=== PATIENT | male | born 1945 | race Caucasian/White ===

== ENCOUNTER 2020-07-05 05:00 | Observation (INO) ==
--- NOTE | 2020-06-29 09:12 | PAT Medication Instructions ---
Medication Instructions Date of Service June 29, 2020 Home Medications amlodipine 10 mg PO QAM aspirin 81 mg PO QAM atenolol 50 mg PO BID atorvastatin 10 mg PO HS cholecalciferol (vitamin D3) [Vitamin D3] 25 mcg PO QAM cyanocobalamin (vitamin B-12) [Vitamin B-12] 500 mcg PO BID hydrochlorothiazide 25 mg PO QAM omega 3-hnw-kuk-fish oil [Fish Oil] 2 cap PO QAM omeprazole 20 mg PO BID STOP taking 2 weeks before surgery (or as soon as possible if surgery is within 2 weeks) omega 0-nxd-suh-fish oil [Fish Oil] 2 cap PO QAM DO NOT take the morning of surgery cholecalciferol (vitamin D3) [Vitamin D3] 25 mcg PO QAM cyanocobalamin (vitamin B-12) [Vitamin B-12] 500 mcg PO BID hydrochlorothiazide 25 mg PO QAM Take morning of surgery With a small sip of water, OTHERWISE NOTHING TO EAT OR DRINK AFTER MIDNIGHT: amlodipine 10 mg PO QAM aspirin 81 mg PO QAM atenolol 50 mg PO BID omeprazole 20 mg PO BID Take evening before surgery atenolol 50 mg PO BID atorvastatin 10 mg PO HS cyanocobalamin (vitamin B-12) [Vitamin B-12] 500 mcg PO BID omeprazole 20 mg PO BID Other Notes If you have any questions please call us at [phone] or [phone] or [phone] or [phone]
--- NOTE | 2020-06-30 11:10 | Anesthesiology Consultation ---
Date of Service June 30, 2020 Assessment & Plan (1) Encounter for pre-operative examination: Chart Review Chart Review: Acceptable Risk for Surgery (pending surgeon ordered PCP clearance and preop Covid testing ) and Patient seen in Pre Admission Testing Awaiting surgeon ordered PCP clearancer scheduled 07/01/20 at 1300pm -With previous surgery- patient did have syncope DOS in the past. Did have cardiac work up (negative). [place] to be secondary to dehydration- did recommend patient stay hydrated and drink extra water day prior to surgery. Pt understands no food or drink after midnight prior to surgery. Per PAT appt on 06/30/20, patient resides in [facility]. Denies recent travel. Wears PPE. Preop Covid done at [facility] 06/30/20= results pending. Educated on importance of self quarantining, social distancing and wearing mask in public both for the patient and household contacts. Teaching & Discussion Pre-Anesthesia Teaching/Discussion Notes: Instructed NPO after midnight before surgery,except medications with 15 cc of water. Medication instructions prov ided according to the PAT guidelines. History Surgery Operation Date: 07/05/20 11:25 Proposed Procedures p Left Total Knee Arthroplasty - Amaury Henderson DO Height/Weight Height: 5 ft 8 in Weight: 90.6 kg Allergies Allergy/AdvReac Type Severity Reaction Status Date / Time No Known Allergies Allergy Verified 06/23/20 08:35 Medications Home Medications Medication Instructions Recorded Confirmed Last Taken amlodipine 10 mg PO QAM 06/23/20 06/23/20 Unknown aspirin 81 mg PO QAM 06/23/20 06/23/20 Unknown atenolol 50 mg PO BID 06/23/20 06/23/20 Unknown atorvastatin 10 mg PO HS 06/23/20 06/23/20 Unknown cholecalciferol (vitamin D3) 25 mcg PO QAM 06/23/20 06/23/20 Unknown [Vitamin D3] cyanocobalamin (vitamin B-12) 500 mcg PO BID 06/23/20 06/23/20 Unknown [Vitamin B-12] hydrochlorothiazide 25 mg PO QAM 06/23/20 06/23/20 Unknown omega 6-cst-gzu-fish oil [Fish Oil] 2 cap PO QAM 06/23/20 06/23/20 Unknown omeprazole 20 mg PO BID 06/23/20 06/23/20 Unknown Past Medical History Medical History GERD (gastroesophageal reflux disease) Well controlled and stable Hyperlipidemia Hypertension Osteoarthritis Exercise / Class Metabolic Activity II 4-5 Yardwork/Stairs/Walk up hill (one flight of stairs- no chest pain or SOB) Past Surgical History Surgical History History of left inguinal hernia repair Hx laparoscopic cholecystectomy Hx of appendectomy Hx of colonoscopy Hx of hemorrhoidectomy Hx of tonsillectomy Past Anesthesia History No Hx of Anesthesia Complications and No Family Hx of Anesthesia Complications History of PONV No Hx of PONV and No Hx of Motion Sickness Social History Smoking Status: Never smoker Do You Dip or Chew Tobacco: No Hx Alcohol Use: No Hx Substance Use: No substance use type: does not use Review of Systems Patient denies chest pain, shortness of breath, dyspnea on exertion, cough, wheezing, palpitations. No hx of seizures, stroke, MA, apnea/snoring. No hx of blood clots or blood transfusions Physical Exam Vital Signs VITALS BP 148/69 P 70 TEMP 98.2 SP02 97% RESP 16 Constitutional no acute distress ENMT Mouth: no TMJ clicking Thyromental Distance: > or= 3.5 Finger Breadths (4.0) Mallampati Class: III Missing molars Neck + limited neck extension (mild ) Respiratory normal respiratory effort; no respiratory distress Auscultation: lungs clear to auscultation bilaterally; no wheezes Cardiovascular Rate/Rhythm: regular rate and regular rhythm Heart Sounds: no murmur Vessels: no carotid bruit Musculoskeletal Spine: no pain with cervical ROM Neurologic moves all extremities Psychiatric Orientation: alert Testing Laboratory Results 06/30/20 11:31 06/30/20 11:31 PT 10.2 Seconds (9.0-12.0) 06/30/20 11:31 INR 1.0 (0.9-1.1) 06/30/20 11:31 APTT 26.9 Seconds (21.0-31.0) 06/30/20 11:31 Hemoglobin A1c 6.1 % (4.5-5.6) H 06/30/20 11:31 Urine Color Yellow 06/30/20 Unknown Urine Appearance Clear (Clear) 06/30/20 Unknown Urine pH 5.0 (4.5-7.5) 06/30/20 Unknown Ur Specific [place] 1.016 (1.000-1.030) 06/30/20 Unknown Urine Protein Negative (Negative) 06/30/20 Unknown Urine Glucose (UA) Negative (Negative) 06/30/20 Unknown Urine Ketones Negative (Negative) 06/30/20 Unknown Urine Nitrite Negative (Negative) 06/30/20 Unknown Ur Leukocyte Esterase Negative (Negative) 06/30/20 Unknown Blood Type A Positive 06/30/20 11:31 Antibody Screen NEGATIVE 06/30/20 11:31 Electrocardiogram Date: 06/30/20 SR with occ PVCs at 63 bpm. Chest X-Ray Date: 06/30/20 Findings: + NAD
--- NOTE | 2020-06-30 13:16 | XRay Report ---
XR chest Pre-admission PA/Lat CLINICAL HISTORY: Preoperative evaluation. COMPARISON STUDY: No previous studies for comparison. FINDINGS: Lung volumes are normal. Lungs are clear. There is no pneumothorax or pleural effusion. Car diac size is normal. Mediastinal contours are normal. There is no evidence for pulmonary edema. Symme tric small nodular densities projecting over each lower lung represent nipple shadows. Upper abdomina l surgical clips are incidentally noted. IMPRESSION: No acute cardiopulmonary findings. ACT 112: Negative or not required by law. Electronically signed by: Phan Morillo M.D. 06/30/2020 12:40 PM
[2020-06-30 13:20] LABS: Basophils # (auto) 0.05 K/uL (0-0.2); Basophils % (auto) 0.5 %; Eosinophils # (auto) 0.16 K/uL (0-0.5); Eosinophils % (auto) 1.6 %; Hematocrit (blood only) 46.7 % (42-52); Hemoglobin 15.4 g/dL (14.0-18.0); Immature Granulocytes # (auto) 0.04 K/uL (0.00-0.02); Immature Granulocytes % (auto) 0.4 %; Lymphocytes # (auto) 2.32 K/uL (1.2-3.4); Lymphocytes % (auto) 22.5 %; Mean Corpuscular Hemoglobin 28.9 pg (25-34); Mean Corpuscular Volume 87.8 fL (80-100); Mean Platelet Volume 11.2 fL (7.4-10.4); Monocytes # (auto) 1.09 K/uL (0.11-0.59); Monocytes % (auto) 10.6 %; Neutrophils # (auto) 6.66 K/uL (1.4-6.5); Neutrophils % (auto) 64.4 %; Platelet Count 299 K/uL (130-400); RDW Coefficient of Variation 14.9 % (11.5-14.5); RDW Standard Deviation 47.9 fL (36.4-46.3); Red Blood Count 5.32 M/uL (4.7-6.1); White Blood Count 10.32 K/uL (4.8-10.8)
[2020-06-30 13:21] LABS: Appearance Urine Clear (Clear); Bilirubin Urine Negative (Negative); Blood Urine Negative (Negative); Color Urine Yellow; Glucose Urine UA Negative (Negative); Ketones Urine Negative (Negative); Leukocyte Esterase Urine Negative (Negative); Nitrite Urine Negative (Negative); Protein Urine Negative (Negative); Specific Gravity Urine 1.016 (1.000-1.030); Urobilinogen Urine Negative (Negative)
[2020-06-30 13:31] LABS: Partial Thromboplastin Time 26.9 Seconds (21.0-31.0); Prothrombin Time 10.2 Seconds (9.0-12.0)
[2020-06-30 13:39] LABS: Albumin Level 3.8 gm/dl (3.4-5.0); BUN Creatinine Ratio 21.8 (10-20); Calcium 9.4 mg/dl (8.5-10.1); Creatinine Clr Calc Pharmacy 82.7 ml/min; Est GFR (African American) 99.2; Est GFR (Non-African American) 85.6; Potassium 3.7 mmol/L (3.5-5.1)
[2020-06-30 14:08] LABS: Estimated Average Glucose 128 mg/dl; Hemoglobin A1C 6.1 % (4.5-5.6)
--- NOTE | 2020-07-01 06:48 | Electrocardiogram Report ---
Test Reason : Blood Pressure : / mmHG Vent. Rate : 063 BPM Atrial Rate : 063 BPM P-R Int : 136 ms QRS Dur : 100 ms QT Int : 412 ms P-R-T Axes : 004 052 064 degrees QTc Int : 421 ms Sinus rhythm with occasional Premature ventricular complexes Otherwise normal ECG No previous ECGs available Confirmed by Ilia Churchill ([id number]) on 07/01/2020 6:47:35 AM Referred By: Amaury Henderson Confirmed By:Ilia Churchill
--- NOTE | 2020-07-02 10:07 | History & Physical Report ---
Date of Service July 05, 2020 Assessment & Plan (1) Degenerative joint disease of left knee: I have indicated the patient for left total knee replacement. The risks, benefits and complications of surgery were explained to the patient which include but not limited to infection, acute blood loss, DVT/PE, injury to nerves, vessels, bone, soft tissue, arthrofibrosis, chronic pain, failure of the prosthesis, knee dislocation, leg length discrepancy, need for additional surgery, cardiac and pulmonary events and . The patient wished to proceed with surgery and informed consent was obtained at this time. We will plan for ASA BID post-operatively for DVT prophylaxis. Upon discharge the patient will be discharged home with home health services. Appropriate clearances by PCP sherry e obtained. History of Present Illness Chief Complaint: Left knee pain/djd Primary Care Provider: PILO Nelson The patient is a 74 year old male who presents with complaints of severe left knee pain and DJD. The patient has failed outpatient conservative treatments to this point which included NSAIDs, IA corticosteroid injection, home e xercise/walking program. The patient's pain and limited function have progressed to the point where they severely hinder their activities of daily living and they no longer tolerate exercise programs. They are requesting to proceed with total knee replacement surgery. Allergies Allergy/AdvReac Type Severity Reaction Status Date / Time No Known Allergies Allergy Verified 07/05/20 05:29 Home Medications Home Medications Medication Instructions Recorded Confirmed Type amlodipine 10 mg PO QAM 06/23/20 07/05/20 History aspirin 81 mg PO QAM 06/23/20 07/05/20 History atenolol 50 mg PO BID 06/23/20 07/05/20 History atorvastatin 10 mg PO HS 06/23/20 07/05/20 History cholecalciferol (vitamin D3) 25 mcg PO QAM 06/23/20 07/05/20 History [Vitamin D3] cyanocobalamin (vitamin B-12) 500 mcg PO BID 06/23/20 07/05/20 History [Vitamin B-12] hydrochlorothiazide 25 mg PO QAM 06/23/20 07/05/20 History omega 3-fol-ywu-fish oil [Fish Oil] 2 cap PO QAM 06/23/20 07/05/20 History omeprazole 20 mg PO BID 06/23/20 07/05/20 History Past Med/Surg History Medical History GERD (gastroesophageal reflux disease) Well controlled and stable Hyperlipidemia Hypertension Osteoarthritis Surgical History History of left inguinal hernia repair Hx laparoscopic cholecystectomy Hx of appendectomy Hx of colonoscopy Hx of hemorrhoidectomy Hx of tonsillectomy Social History Smoking Status: Never smoker Second Hand Exposure: No; Do You Dip or Chew Tobacco: No; Tobacco Cessation Education Requested by Patient: No Hx Alcohol Use: No Hx Substance Use: No Preferred Language: Niuean Communication Ability: Effective Melter Clerk Required: No Beliefs That Will Affect Care: None Current Living Situation: Spouse Other Information That Helps Us Care for You: No Feels Safe at Home: Yes Safety Concerns: Feels Safe At This Time Review of Systems Review of Systems: All systems reviewed & are unremarkable except as noted in HPI & below Constitutional: as per Subjective / HPI Physical Exam Physical Exam: LLE NVSI +EHL/FHL/TA/GS SILT grossly, +2 DP pulse, compartments soft NT, limited painful ROM of the knee, 5-110 degrees of flexion, + crepitus. Constitutional: WD/WN, vitals as above Eyes: PERRL, conjunctivae normal, anicteric sclerae ENMT: external ear and nose normal, oropharynx normal Neck: trachea midline, no thyromegaly Respiratory: normal respiratory effort, lungs clear to auscultation Cardiovascular: RRR, no murmur, no edema Gastrointestinal (Abdomen): normal bowel sounds, soft, nontender, no hepatosplenomegaly Musculoskeletal: no cyanosis or clubbing, extremities motor strength 5/5 Skin: no rashes, warm and dry Neurologic: patellar DTR's 2+ bilat, sensation intact Psychiatric: A+Ox3, euthymic affect Lymphatic: no cervical or axillary lymphadenopathy Results & Data Results & Data ([facility]) Diagnostic Findings Multiple views of the knee demonstrates severe tricompartmental DJD with complete loss of the medial joint space. +osteophytes, +sclerosis. Pre Admission Testing Addendum Laboratory Results 06/30/20 11:31 06/30/20 11:31 PT 10.2 Seconds (9.0-12.0) 06/30/20 11:31 INR 1.0 (0.9-1.1) 06/30/20 11:31 APTT 26.9 Seconds (21.0-31.0) 06/30/20 11:31 Hemoglobin A1c 6.1 % (4.5-5.6) H 06/30/20 11:31 Urine Color Yellow 06/30/20 Unknown Urine Appearance Clear (Clear) 06/30/20 Unknown Urine pH 5.0 (4.5-7.5) 06/30/20 Unknown Ur Specific [place] 1.016 (1.000-1.030) 06/30/20 Unknown Urine Protein Negative (Negative) 06/30/20 Unknown Urine Glucose (UA) Negative (Negative) 06/30/20 Unknown Urine Ketones Negative (Negative) 06/30/20 Unknown Urine Nitrite Negative (Negative) 06/30/20 Unknown Ur Leukocyte Esterase Negative (Negative) 06/30/20 Unknown Blood Type A Positive 06/30/20 11:31 Antibody Screen NEGATIVE 06/30/20 11:31
[2020-07-05] MEDS ORDERED: ROPIVACAINE 0.5% HCL/PF 150 MG, BUPIVACAINE 0.5% MPF 30 ML, EPINEPHrine 30MG/30ML (OR U... INSTIL SCH (06:00)
[2020-07-05] MEDS ORDERED: FAMOTIDINE 20 MG TAB PO SCH (06:00)
[2020-07-05] MEDS ORDERED: TRANEXAMIC ACID 1,000 MG **IV Intra-op IV SCH (06:00)
[2020-07-05] MEDS ORDERED: GABAPENTIN 300 MG CAP PO SCH (06:00)
[2020-07-05] MEDS ORDERED: METOCLOPRAMIDE HCL 10 MG TABLET PO SCH (06:00)
[2020-07-05] MEDS ORDERED: CeleBREX 200 MG CAP PO SCH (06:00)
[2020-07-05] MEDS ORDERED: CEFAZOLIN 2000MG 2,000 MG/15 ML SYR IV SCH (06:00)
[2020-07-05] MEDS ORDERED: TRANEXAMIC ACID 1,000 MG **IV Pre-op IV SCH (06:00)
[2020-07-05] MEDS ORDERED: LR 500ML BOLUS, THEN 15ML/HR IV SCH (06:00)
[2020-07-05] MEDS ORDERED: dexAMETHasone 4 MG TAB PO SCH (06:00)
[2020-07-05] MEDS ORDERED: ACETAMINOPHEN 500 MG TAB PO SCH (06:00)
[2020-07-05] MEDS ORDERED: BUPIVACAINE 0.25% 30 ML VIAL ONE (06:27)
[2020-07-05] MEDS ORDERED: BUPIVACAINE 0.5 % 5 MG/1 ML PF 10ML VIAL ONE (06:27)
[2020-07-05] MEDS ORDERED: MIDAZOLAM HCL 1 MG/ML 2ML VIAL ONE ×2 (06:39→06:40)
[2020-07-05] MEDS ORDERED: fentaNYL citrate 100 MCG/2 ML VIAL ONE (06:40)
[2020-07-05] MEDS ORDERED: ATROPINE SULFATE 0.1 MG/ML 10ML SYR IV PRN (06:51)
[2020-07-05] MEDS ORDERED: ePHEDrine sulfate 50 MG/ML AMP IV PRN (06:51)
[2020-07-05] MEDS ORDERED: fentaNYL citrate 100 MCG/2 ML VIAL IV PRN (06:51)
[2020-07-05] MEDS ORDERED: ONDANSETRON INJ 2 MG/ML 2 ML VIAL IV PRN ×2 (06:51→10:44)
--- NOTE | 2020-07-05 07:00 | History & Physical Bridge Note ---
Date of Service July 05, 2020 History & Physical Bridge Note I have examined the patient, reviewed the History & Physical and in the interval since the performance of the History & Physical I have noted the following changes of clinical significance: no changes noted
[2020-07-05] MEDS ORDERED: ORTHO JOINT ANESTHETIC ONE (07:07)
[2020-07-05] MEDS ORDERED: BACITRACIN INJ 50,000 UNIT VIAL ONE (07:07)
[2020-07-05] MEDS ORDERED: PROPOFOL IV EMULSION 10 MG/ML 20 ML VIAL IV ONE (08:02)
--- NOTE | 2020-07-05 08:58 | Post Operative Brief Note ---
Immediate Post Op Note v1 Date of Surgery July 05, 2020 Pre & Post Diagnosis Operation Date: 07/05/20 07:15 Pre-Op Diagnosis: Left Knee Osteoarthritis Post-Op Diagnosis: Left Knee Osteoarthritis I identified the patient and participated in the time-out.: Yes Procedure Operation Date: 07/05/20 07:15 Actual Procedures p Left Total Knee Arthroplasty(Left) - Amaury Henderson DO Surgeon Amaury Henderson DO Playroom Attendant Cecil Beauchamp Estimated Blood Loss 65 Findings Consistent with Post-Op Diagnosis Specimens proximal tibia and distal femur bone fragments Anesthesia Type Spinal MAC Complications none Disposition Disposition: Recovery Room Overlapping Procedure I was present for: the critical portions of procedure. I was immediately available: during the entire case. Back up surgeon: was not required during procedure.
--- NOTE | 2020-07-05 09:01 | Operative Report ---
Post Operative Report Pre & Post Diagnosis Operation Date: 07/05/20 07:15 Pre-Op Diagnosis: Left Knee Osteoarthritis Post-Op Diagnosis: Left Knee Osteoarthritis I identified the patient and participated in the time-out.: Yes Procedure Operation Date: 07/05/20 07:15 Actual Procedures p Left Total Knee Arthroplasty(Left) - Amaury Henderson DO Surgeon Amaury Henderson DO Supervisor Display Fabrication Cecil Cali Estimated Blood Loss 65 Findings Consistent with Post-Op Diagnosis Specimens Proximal tibia and distal femur bone fragments Anesthesia Type Spinal MAC Complications none Disposition Disposition: Recovery Room Indications The patient is a 74-year-old male presents with long history of severe left knee tricompartmental DJD and failed outpatient conservative treatments including NSAIDs, bracing, injections and home walking/exercise program. The patient's symptoms have progressed to the point where it has been difficult to perform normal activities of daily living. I have indicated the patient for a left total knee arthroplasty, the risks and benefits and complications of the procedure include but are not limited to infection bleeding damage to bone, nerves, vessels, surrounding soft tissue, blood clots, loss of function, leg length discrepancy, dislocation, failure of the components, need for additional surgery and . The patient wished to proceed with surgery at this time and informed consent was obtained. Appropriate clearances were obtained. Description of Procedure COMPONENTS USED: Ralf persona knee system: Femur size 7, Tibia size E, Tibial articulating surface 11 PS, Patella 32 mm Following induction of spinal anesthesia, a tourniquet was applied to the proximal aspect of the thigh and the patient's left leg was prepped and draped in the usual sterile manner. A timeout was performed, patient identified and site jose f confirmed. Appropriate pre-operative IV antibiotics were given. The limb was exsanguinated with an Esmarch bandage and tourniquet was inflated to 300 mmHg. A longitudinal midline incision was made over the anterior knee. Subcutaneous tissue was sharply dissected down to fascia. Electrocautery was used for hemostasis. Next a parapatellar arthrotomy was performed. Patella was everted and the knee was flexed. A Donohue retractor was used to expose the synovium above on the anterior aspect of the femur and removed down to bone. Next, the anterior fat pad was removed to aid in visualization. The medial face of the tibia was cleared of soft tissue first with a Bovie and a plaza elevator. This tissue was retracted posteriorly using a blunt Hohmann. Next, the extra-medullary tibial cutting guide was placed to the anterior aspect of the tibia. The tibia resection level was set taking 2mm from the defective tibial condyle. Resection depth was once again confirmed with parul wing. The medial and lateral collateral ligament was protected with two Hohmann retractors. The tibia guide was removed and proximal tibial bone fragment removed utilizing straight osteotome, electrocautery and Sean. Next, the distal femur intramedullary canal was accessed utilizing the step drill. The intramedullary distal femur cutting guide was placed into the canal and pinned into place. The distal femur was cut on the 5 degree setting. Next the cutting guide was removed and the femur was sized. Care was taken to ensure appropriate digital imaging specialist all rotation and 3 degree holes were drilled. A size 7 4-in-1 cutting block was placed on the distal end of the femur and secured into place with two short headed screws. Two bent Hohmann retractors were placed to protect the medial and lateral collateral ligaments. The oscillating saw was used to cut anterior, posterior, anterior chamfer and posterior chamfer. The four and one cutting block was removed and bone fragments excised. Laminar paper baler was placed laterally and the ACL and PCL were removed followed by the medial meniscus and posterior medial osteophytes. Aquamantys was utilized for any posterior medial bleeders and Orthomix injected into the posterior medial capsule. A laminar paper baler was then placed in the medial compartment and the lateral meniscus and posterior osteophytes were removed. Aquamantys was utilized for any posterior lateral bleeders and Orthomix injected into the posterior lateral capsule. Next, drop sophy and spacer block were placed with the leg in flexion and extension to assess alignment and flexion/extension gaps. Next, the proximal tibia was assessed and two bent Hohmans were placed medial a nd lateral to aid in visualization. The appropriate tibia size and rotation was selected and a size E tibial plate was pinned into place with appropriate rotation. Preparation of the tibia was completed utilizing the matching tibial drill and broach. I then turned my attention back to the distal femur in a trial femoral component was impacted into place. Appropriate femoral width was assessed and selected. Next the femur PS box cut guide was placed and cut made with the reciprocal saw and the PS box provisional placed. A trial size 10 PS tibia articular tray was placed and varus-valgus balance assessed in 0 degrees of extension and 30, 60 and 90 degrees of flexion. A final tibial articular surface size 11 PS was chosen. Assess was gained to the patella and caliper utilized to measure width. The patella reamer was utilized and remaining bone removed with oscillating saw. A size 32 patella button was selected and the patella pegs drilled. Trial patella button was placed and tracking was assessed. The knee was found to be well balanced, well aligned with excellent patella tracking. The trials were removed and final components were obtained and assembled. The knee was irrigated copiously with sterile saline solution mixed with bacitracin. Access to the proximal tibia was once again obtained utilizing to the Hohmans and the proximal tibia and distal femur were dried with lap sponges. The final components were cemented into place and all excess cement was removed. A trial tibial articular surface was placed while cemented hardened. Knee stability was once again assessed and the final component inserted. A Betadine soak was performed. After 3 minutes, the knee was once more irrigated with copious sterile saline solution with bacitracin. The knee was injected with the remaining Orthomix which includes a combination of Ropivicaine 0.5% 150mg, Bupivicaine 0.5%/Epinephrine 1:200,000 30ml, Toradol 30mg, Dexamethasone 4mg, Ketamine 10mg, Clonidine 100mcg and NSS 30ml solution. The capsulotomy was closed with #1 Vicryl followed by subcutaneous closure with 2-0 Vicryl suture and a 3-0 V-lock suture. Skin closure was performed using Prineo dressing follo wed by Telfa, 4 x 4s and mynor wrap. Tourniquet was deflated at 88 minutes. The patient tolerated the procedure well and was taken to the PACU in stable condition. Due to the complex nature of the procedure, the entire surgery was performed with the operational assistance of Cecil Cali PA-C. The field technical assistant, under direct supervision, was involved in the actual performance of all aspects of the surgical procedure including patient positioning, hemostasis, tissue retraction, instrument management and wound closure. I attest to the content of the Intraoperative Record and any orders documented therein. Any exceptions are noted below.
--- NOTE | 2020-07-05 10:27 | XRay Report ---
TWO VIEWS LEFT KNEE CLINICAL HISTORY: Postoperative examination. FINDINGS: AP and crosstable lateral portable views of the left knee are obtained. A left knee arthrop lasty is in near anatomic alignment. There has been undersurface remodeling of the patella. No acute fracture is seen. There are expected postoperative changes around the knee including soft tissue rome a and subcutaneous gas. IMPRESSION: Expected postoperative changes status post left knee arthroplasty. No acute fracture is s een. ACT 112: Negative or not required by law. Electronically signed by: Armando Elizabeth M.D. 07/05/2020 10:25 AM
[2020-07-05] MEDS ORDERED: METOCLOPRAMIDE HCL INJ 5 MG/ML 2 ML VIAL IV PRN (10:44)
[2020-07-05] MEDS ORDERED: MAGNESIUM HYDROXIDE SUSP 30 ML UDC PO PRN (10:44)
[2020-07-05] MEDS ORDERED: bisacodyL 10 MG SUPP PR PRN (10:44)
[2020-07-05] MEDS ORDERED: NALOXONE HCL 0.4 MG/1 ML VIAL/CARP IV PRN (10:44)
[2020-07-05] MEDS ORDERED: HYDROmorphone INJ 0.5 MG/0.5 ML SYR IV PRN (10:44)
[2020-07-05] MEDS ORDERED: OXYCODONE HCL IR 5 MG TAB (IMMEDIATE RELEASE) PO PRN (10:44)
[2020-07-05] MEDS: SODIUM CHLORIDE 0.9% 1000ML 1,000 ML IV SCH ×2 (11:10→20:42)
[2020-07-05] MEDS: KETOROLAC TROMETHAMINE 15 MG/ML VIAL IV SCH ×3 (11:11→22:00)
[2020-07-05] MEDS: ACETAMINOPHEN 500 MG TAB PO SCH ×2 (14:00→22:00)
--- NOTE | 2020-07-05 14:54 | Anesthesiology Progress Note ---
Date of Service July 05, 2020 Anesthesia Post Procedure Vital Signs Vital Signs: Temp Pulse Pulse Resp BP Pulse Ox 07/05/20 13:35 36.5 C 51 L 16 124/68 95 07/05/20 12:34 36.4 C L 60 16 124/66 95 07/05/20 11:35 36.4 C L 55 L 16 121/72 96 07/05/20 11:05 36.5 C 55 L 16 125/64 96 07/05/20 10:35 36.9 C 59 L 16 119/65 96 07/05/20 10:10 36.6 C 72 14 117/59 L 94 07/05/20 10:00 87 13 116/65 96 07/05/20 09:50 58 L 16 118/60 95 07/05/20 09:40 67 14 112/63 07/05/20 09:32 36.9 C 64 19 108/50 L 95 07/05/20 05:35 36.8 C 71 20 172/89 H 96 Transfer of Care Handoff Completed per policy Notes Mental Status: alert / awake / arousable and participated in evaluation Patient Amnestic to Procedure: Yes Nausea / Vomiting: adequately controlled Pain: adequately controlled Airway Patency, RR, SpO2: stable & adequate BP & HR: stable & adequate Hydration State: stable & adequate Neuraxial Anesthesia: was administered and sensory block is resolving Anesthetic Complications: no major complications apparent and Pt Satisfied with anesthetic care
[2020-07-05] MEDS: CEFAZOLIN 2000MG 2,000 MG/15 ML SYR IV SCH ×2 (14:59→21:59)
--- NOTE | 2020-07-05 16:14 | Orthopedic Progress Note ---
Date of Service July 05, 2020 Assessment & Plan (1) Degenerative joint disease of left knee: s/p L TKA -ancef x 24 -DVT ppx: SCDs, TEDs, ASA BID -WBAT LLE -PT/OT -PO XR demonstrates well aligned well fixed prosthesis without fracture/dislocation -am labs -DC planning Admission and Anticipated Discharge Date Admission Date: July 05, 2020 Subjective Post Operative Progress Note Patient seen sitting up in bed, comfortable, denies complaints, pain well controlled, no acute issues. Review of Systems Review of Systems: All systems reviewed & are unremarkable except as noted in HPI & below Constitutional: as per Subjective / HPI Physical Exam Physical Exam: LLE NVSI +EHL/FHL/TA/GS SILT grossly, +2 DP pulse, compartments soft NT, dressing cdi. Constitutional: WD/WN, vitals as above Results & Data ([facility]) Vital Signs (Past 12 Hours) Vital Signs Temp Pulse Pulse Resp BP Pulse Ox 07/05/20 13:35 36.5 C 51 L 16 124/68 95 07/05/20 12:34 36.4 C L 60 16 124/66 07/05/20 11:35 36.4 C L 55 L 16 121/72 96 07/05/20 11:05 36.5 C 55 L 16 125/64 96 07/05/20 10:35 36.9 C 59 L 16 119/65 96 07/05/20 10:10 36.6 C 72 14 117/59 L 94 07/05/20 10:00 87 13 116/65 96 07/05/20 09:50 58 L 16 118/60 95 07/05/20 09:40 67 14 112/63 07/05/20 09:32 36.9 C 64 19 108/50 L 95 07/05/20 05:35 36.8 C 71 20 172/89 H 96
[2020-07-05] MEDS: DOCUSATE SODIUM 100 MG CAP PO SCH (20:41)
[2020-07-05] MEDS: ATENOLOL 50 MG TABLET PO SCH (20:42)
[2020-07-05] MEDS: PANTOprazole 40 MG TAB PO SCH (20:42)
[2020-07-05] MEDS ORDERED: ATORVASTATIN 10 MG TAB PO SCH (21:00)
[2020-07-05] MEDS ORDERED: SENNA 8.6 MG TAB PO SCH (21:00)
[2020-07-06] MEDS: ACETAMINOPHEN 500 MG TAB PO SCH ×2 (05:21→13:03)
[2020-07-06] MEDS: KETOROLAC TROMETHAMINE 15 MG/ML VIAL IV SCH (05:21)
[2020-07-06 06:30] LABS: Hematocrit (blood only) 39.3 % (42-52); Hemoglobin 13.3 g/dL (14.0-18.0); Mean Corpuscular Hemoglobin 29.3 pg (25-34); Mean Corpuscular Hgb Conc 33.8 g/dL (32-36); Mean Corpuscular Volume 86.6 fL (80-100); Mean Platelet Volume 11.1 fL (7.4-10.4); Platelet Count 275 K/uL (130-400); RDW Coefficient of Variation 14.5 % (11.5-14.5); RDW Standard Deviation 45.6 fL (36.4-46.3); Red Blood Count 4.54 M/uL (4.7-6.1); White Blood Count 21.54 K/uL (4.8-10.8)
[2020-07-06 06:58] LABS: BUN Creatinine Ratio 21.8 (10-20); Calcium 8.2 mg/dl (8.5-10.1); Creatinine Clr Calc Pharmacy 70.1 ml/min; Est GFR (African American) 85.1; Est GFR (Non-African American) 73.4; Potassium 3.8 mmol/L (3.5-5.1)
[2020-07-06 07:12] VITALS: O2SAT 96
[2020-07-06] MEDS: DOCUSATE SODIUM 100 MG CAP PO SCH (08:35)
[2020-07-06] MEDS: PANTOprazole 40 MG TAB PO SCH (08:36)
[2020-07-06] MEDS: ATENOLOL 50 MG TABLET PO SCH (08:38)
--- NOTE | 2020-07-06 08:48 | Orthopedic Progress Note ---
Date of Service July 06, 2020 Assessment & Plan (1) Degenerative joint disease of left knee: s/p L TKA POD#1 -ancef x 24 -DVT ppx: SCDs, TEDs, ASA BID -WBAT LLE -PT/OT -PO XR demonstrates well aligned well fixed prosthesis without fracture/dislocation -am labs - as above, hgb 11.3 -DC planning - home with Admission and Anticipated Discharge Date Admission Date: July 05, 2020 Subjective Post Operative Progress Note Patient seen sitting up in bed, comfortable, denies complaints, pain well controlled, no acute issues. Denies F/C/N/V/SOB/CP. Review of Systems Review of Systems: All systems reviewed & are unremarkable except as noted in HPI & below Constitutional: as per Subjective / HPI Physical Exam Physical Exam: LLE NVSI +EHL/FHL/TA/GS SILT grossly, +2 DP pulse, compartments soft NT, dressing cdi. Constitutional: WD/WN, vitals as above Results & Data (MN) Vital Signs (Past 12 Hours) Vital Signs Temp Pulse Resp BP Pulse Ox 07/06/20 08:32 58 L 142/71 H 07/06/20 07:10 36.7 C 55 L 16 133/61 96 07/06/20 03:10 36.8 C 60 16 119/62 95 07/05/20 23:22 36.6 C 53 L 16 134/66 95 Laboratory Results 07/06/20 07/06/20 Range/Units 05:58 05:58 WBC 21.54 H (4.8-10.8) K/uL RBC 4.54 L (4.7-6.1) M/uL Hgb 13.3 L (14.0-18.0) g/dL Hct 39.3 L (42-52) % MCV 86.6 (80-100) fL MCH 29.3 (25-34) pg MCHC 33.8 (32-36) g/dL RDW Std Deviation 45.6 (36.4-46.3) fL RDW Coeff of Iván 14.5 (11.5-14.5) % Plt Count 275 (130-400) K/uL MPV 11.1 H (7.4-10.4) fL Sodium 142 (136-145) mmol/L Potassium 3.8 (3.5-5.1) mmol/L Chloride 111 H (98-107) mmol/L Carbon Dioxide 25 (21-32) mmol/L Anion Gap 6.0 (3-11) BUN 22 H (7-18) mg/dl Creatinine 1.01 (0.6-1.4) mg/dl Est Cr Clr Drug Dosing 70.1 ml/min Est GFR ( Amer) 85.1 Est GFR (Non-Af Amer) 73.4 BUN/Creatinine Ratio 21.8 H (10-20) Glucose 134 H (70-99) mg/dl Calcium 8.2 L (8.5-10.1) mg/dl
[2020-07-06] MEDS ORDERED: hydroCHLOROthiazide 25 MG TAB PO SCH (09:00)
[2020-07-06] MEDS ORDERED: MULTIVITAMIN TAB PO SCH (09:00)
[2020-07-06] MEDS ORDERED: ASPIRIN 325 MG ECTAB PO SCH (09:00)
[2020-07-06] MEDS ORDERED: AMLODIPINE BESYLATE 5 MG TAB PO SCH (09:00)
[2020-07-06 11:18] VITALS: BP 129/70; PULSE 68; TEMP 98.8
--- NOTE | 2020-07-06 19:03 | Discharge Summary ---
Date of Service July 06, 2020 Admission HPI Per Admitting Provider The patient is a 74 year old male who presents with complaints of severe left knee pain and DJD. The patient has failed outpatient conservative treatments to this point which included NSAIDs, IA corticosteroid injection, home exercise/walking program. The patient's pain and limited function have progressed to the point where they severely hinder their activities of daily living and they no longer tolerate exercise programs. They are requesting to proceed with total knee replacement surgery. Principal Diagnosis Left total knee replacement Discharge Exam LLE NVSI +EHL/FHL/TA/GS SILT grossly, +2 DP pulse, compartments soft NT, dressing cdi. Constitutional WD/WN, vitals as above Discharge Data Allergies Allergy/AdvReac Type Severity Reaction Status Date / Time No Known Allergies Allergy Verified 07/05/20 05:29 Consultations 07/05/20 10:44 Consult Case Management - Discharge Planning Routine Procedures Performed Operation Date: 07/05/20 07:15 Actual Procedures p Left Total Knee Arthroplasty(Left) - Amaury Henderson DO Ordered Studies 07/05/20 05:00 US - OR guided needle placemen Routine Hospital Course (1) Degenerative joint disease of left knee: The patient is a 74 -year-old male who presents with long standing history of severe left knee DJD and failed outpatient conservative treatments. The patient's symptoms have progressed to the point where it has been difficult to perform even normal activities of daily living. I indicated the patient for a left total knee arthroplasty, the risks, benefits and complications of the procedure include but not limited to infection, bleeding, damage to bone, nerves, vessels, surrounding soft tissue, may develop blood clots, loss of function, leg length discrepancy, dislocation, failure of the components, loosening of the components, the need for additional surgery and . The patient wished to proceed with surgery at this time and informed consent was obtained. Hospital Course: On 07/05/20 the patient was taken to the operating room, adequate anesthesia administered and underwent a left total knee arthroplasty. The patient tolerated the procedure well and was taken to the PACU in stable condition. Post-operatively the patient was started on a DVT ppx medication and given appropriate IV antibiotics. Consults were placed to physical therapy, occupational therapy and case management. On POD#1, the patient did well overnight and their pain was well controlled. Labs were drawn and the Hgb was 11.3. The patient progressed well with PT. Dressings were changed at this time and the incision was clean, dry and intact. The patients hospital stay was relatively uneventful and they were deemed stable by the orthopedic team and consultants to be discharged home with HH on 07/06/20. Discharge Instructions: Upon discharge the patient may weight bear as tolerates through their operative extremity. They were instructed to keep the incision clean and dry at all times. The patient may shower but should not submerge the incision, avoid bathing, pools and hot tubes. The patient was given a script for pain med ication and should take as instructed. The patient was given a script for DVT ppx ASA 325mg BID and should take as directed. The patient was instructed to not drive or travel for long distances until cleared to do so. If the patient develops any symptoms of fevers, chills, nausea, vomiting, increased redness, swelling, pain or drainage from the surgical site, they should notify the office and/or proceed to the nearest emergency room. The patient should follow up in 10-14 days after surgery for their routine post-operative follow-up appointment and should call the office to confirm the date and time. s/p L TKA POD#1 -ancef x 24 -DVT ppx: SCDs, TEDs, ASA BID -WBAT LLE -PT/OT -PO XR demonstrates well aligned well fixed prosthesis without fracture/dislocation -am labs - as above, hgb 11.3 -DC planning - home with Total Time Total Time Spent Total Time Spent (In Minutes): 30 Discharge Plan Discharge Items Patient Disposition: Home - Home Health Services Reason For Visit: Left Knee Osteoarthritis Discharge Diagnosis: Left total knee replacement -Left knee DJD Condition on Discharge: Good Activity: Per Instructions section Lifting: Wait until after follow-up appointment Bathing: Keep incision dry Bathing Comment: No bathing, pools or hot tubs Sexual Activity: Wait until after follow-up appointment Exercise/Sports: Wait until after follow-up appointment Driving/Machine Use: No driving Weightbearing: Full weightbearing Non-emergency contact: Primary Care Provider and Surgeon Call non-emergency contact if: you have any medication questions, your symptoms worsen, your pain is not controlled, your pain is worsening, your pain is unusual for you, your pain is concerning for you, you have a fever, your temperature is above 101, your wound has increased redness, your wound has increased drainage and your wound pain has increased Follow-up/Referrals: Zari Chatterjee CRNP [Primary Care Provider] - Diet: Regular Addtl Attending Provider Instructions: ACTIVITY RECOMMENDATIONS: SELF CARE INSTRUCTIONS AFTER TOTAL KNEE REPLACEMENT A. You may need to continue a physical therapy program after discharge from the hospital. There are several options available to you. Your doctor will assist you in selecting the best one for you. 1. An out-patient facility 2 to 3 times a week for therapy or home therapy. 2. Continue working on all exercises taught to you in the hospital. Your goals should be to increase bending of your knee to 90 degrees and beyond and to fully straighten your knee. B. You may progress at your own pace from walking with a walker or crutches to a cane; then to no assistive devices. C. Make walking a part of your daily routine. Be up as much as comfortable with rest periods throughout the day. Rest with leg elevation is very important. Use the ice wrap frequently for the first 3-4 weeks. D. There are no restrictions on activities. You may ride in a car, shop, participate in vocational trainer and all social activities. E. Wear the long elastic stockings (SONYA hose) 20 hours a day for 2 weeks after surgery. They can be removed several times a day for laundering and for a bath. F. You may shower, no tub baths until cleared by your doctor. SPECIAL CARE INSTRUCTIONS: VERY IMPORTANT TO READ AND REVIEW A. There are a few signs you need to watch for after you are home. Call [facility] if you notice any of the followin. Increased severe knee pain. Some pain is expected especially when you exercise. 2. Increased swelling in your leg or knee; pain or swelling of the calf muscle in either lower leg. 3. Any fluid drainage from the incision. 4. Shortness of breath or chest pain. B. Please call [facility] at if you have any concerns or questions about your operation or recovery. The doctor or his nurse will return your call promptly. C. You must take antibiotics before dental work, bladder, bowel or other surgery. Your doctor will provide you with a permanent care to carry describing this precaution. IMPORTANT: * REMEMBER TO TAKE ASPIRIN, 325 MG, TWICE DAILY FOR 4 WEEKS UNLESS OTHERWISE DIRECTED. THIS IS YOUR BLOOD THINNER. * HIGH RISK PATIENTS MAY BE PRESCRIBED A STRONGER BLOOD THINNER. THIS WILL BE PROVIDED AT DISCHARGE. * CALL IF INCREASED PAIN, REDNESS, DRAINAGE OR FEVER GREATER THAT 101. * WEAR SONYA HOSE 20 HOURS PER DAY FOR 2 WEEKS. *DERMABOND Prineo- This is a mesh tape dressing that is covered with glue. It should remain in place until the incision is properly healed, usually 10-14 days. This dressing is designed to naturally slough off. You may trim the excess mesh tape as it peels off. Incision may be briefly wet in a shower. Dry immediately by blotting with a clean, dry towel. Do not bath or swim until instructed by your doctor. Do not scratch, rub, or pick at the dressing. Do not apply any topical ointments or lotions until dressing is completely removed and/or instructed by your doctor. There may be a small piece of suture material at one end of your incision. Do n ot pull or trim this. If it is bothersome or catching on clothing, you may cover it with a band-aid. FOLLOW UP VISIT: If appointment is not already scheduled: Please call [facility] to make a follow-up appointment for 2 weeks after your surgery at . Pending Studies at Discharge: No Stand-Alone Forms: [facility], Opioid Pain Management, Smoking Cessation Medications and DC Order Prescriptions: New celecoxib [Celebrex] 200 mg Capsule 200 mg PO BID PRN (Reason: pain/inflammation) Qty: 28 RF: 0 acetaminophen 500 mg Tablet 1,000 mg PO Q8 PRN (Reason: pain/fevers) Qty: 90 RF: 0 aspirin [Ecotrin] 325 mg Tablet,Delayed Release (Dr/Ec) 325 mg PO BID Qty: 56 RF: 0 oxycodone 5 mg Tablet 5 mg PO Q6H MDD 4 PRN (Reason: pain) Qty: 30 RF: 0 sennosides [Senokot] 8.6 mg Tablet 17.2 mg PO HS PRN (Reason: constipation) Qty: 28 RF: 0 Continued atorvastatin 20 mg Tablet 10 mg PO HS RF: 0 cyanocobalamin (vitamin B-12) [Vitamin B-12] 500 mcg Tablet 500 mcg PO BID RF: 0 amlodipine 10 mg Tablet 10 mg PO QAM RF: 0 omeprazole 20 mg Capsule,Delayed Release(Dr/Ec) 20 mg PO BID RF: 0 hydrochlorothiazide 25 mg Tablet 25 mg PO QAM RF: 0 atenolol 50 mg Tablet 50 mg PO BID RF: 0 cholecalciferol (vitamin D3) [Vitamin D3] 25 mcg (1,000 unit) Capsule 25 mcg PO QAM RF: 0 omega [id number] oil [Fish Oil] 1,200 (144-216) mg Capsule 2 cap PO QAM RF: 0 Discontinued aspirin 81 mg Tablet,Delayed Release (Dr/Ec) 81 mg PO QAM RF: 0 Discharge Orders: Discharge Order (Routine); Ordered 07/06/20 Ordered By: Amaury Cohen/Other Patient Handouts: DVT Post Op Prevention, Prediabetes, A1C Admission Data Admit Date/Time: 07/05/20 09:42 Attending Provider: Amaury Henderson Admit Provider: Amaury Henderson Primary Care Provider: Zari Chatterjee Other Providers: [facility],Home Health Other Interventions: Discharge Summary Assessment (RN) Last Done: 07/06/20 13:20
[2020-07-06] MEDS ORDERED: CeleBREX 200 MG CAP PO SCH (21:00)
== END 2020-07-06 13:45 | disposition home health service (06) ==
LOC: ASU 05:00 → 3E 05:00